=== PATIENT | male | born 1995 | race Two or more races ===

== ENCOUNTER 2023-02-10 07:46 | Day surgery (SDC) | payer MEDICAID ==
[~2023-02-10] VITALS: Ht 180.3 cm; Wt 83.9 kg
[~2023-02-10 07:46] MED LIST: ALBU17AE26
[2023-02-10] MEDS ORDERED: DIPHENHYDRAMINE INJ 50 MG/ML VIAL ONE (08:25)
[2023-02-10] MEDS ORDERED: SIMETHICONE 40 MG/0.6 ML ML ONE (08:26)
[2023-02-10] MEDS: MIDAZOLAM HCL 5 MG/5 ML VIAL ONE ×4 (08:27→08:36)
[2023-02-10] MEDS: fentaNYL CITRATE/PF 100 MCG/2 ML AMP ONE ×3 (08:27→08:36)
[2023-02-10 13:46] VITALS: BP_SYST 126; PULSE 82; RESP 17; TEMP 97.4; O2SAT 98
== END 2023-02-10 10:05 | disposition home or self-care (01) ==
LOC: SDS 07:46 → SMU 07:55 → SDS 10:05
PROVIDERS: ATTEND Internal Medicine
DX: Z12.11 Encounter for screening for malignant neoplasm of colon (principal); R93.89 Abnormal findings on diagnostic imaging of other specified body structures; K64.8 Other hemorrhoids; Z91.013 Allergy to seafood; Z90.49 Acquired absence of other specified parts of digestive tract
CPT/HCPCS: 45380; 88305; 99152; G0378; J1200; J2250; J3010